=== PATIENT | female | born 1980 | race Two or more races ===

== ENCOUNTER 2017-09-26 10:10 | Outpatient (CLI) | payer OTHER ==
[~2017-09-26 10:10] MED LIST: CIPRO500 MG PO; PERCOCET 5/3251 TAB PO; PROTONIX40 MG PO; ZOFRAN ODT4 MG/UDTAB PO
== END 2017-09-26 10:59 | disposition home or self-care (01) ==
LOC: NST 10:10
DX: Z34.83 Encounter for supervision of other normal pregnancy, third trimester (principal)

== ENCOUNTER 2017-09-26 15:58 | Inpatient (IN) | payer OTHER ==
[~2017-09-26] VITALS: Ht 170.2 cm; Wt 110.7 kg
[2017-10-06] MEDS ORDERED: ZITHROMAX200 MG PO (11:53)
[2017-10-06] MEDS ORDERED: TUSSI-PRES B LIQ5 ML PO (11:54)
[2017-10-06] MEDS ORDERED: ORAPRED ODT10 MG PO (11:56)
[2017-10-06] MEDS ORDERED: PRENATAL TABLE1 EAC1 PO (11:56)
== END 2017-10-08 14:38 | disposition home or self-care (01) | DRG 767 ==
LOC: OB/GYN 09-29 08:37 → O/R 10-06 10:36 → LDR 10-06 10:36 → O/R 10-06 17:43 → OB/GYN 10-06 19:31
PROVIDERS: Obstetrics & Gynecology
PROC: 0UL70ZZ Occlusion of Bilateral Fallopian Tubes, Open Approach (ICD-10-PCS; 2017-10-06)
PROC: 0WQF0ZZ Repair Abdominal Wall, Open Approach (ICD-10-PCS; 2017-10-06)
PROC: 0UQGXZZ Repair Vagina, External Approach (ICD-10-PCS; 2017-10-06)
PROC: 10907ZC Drainage of Amniotic Fluid, Therapeutic from Products of Conception, Via Natural or Artificial Opening (ICD-10-PCS; 2017-10-06)
PROC: 3E033VJ Introduction of Other Hormone into Peripheral Vein, Percutaneous Approach (ICD-10-PCS; 2017-10-06)
PROC: 4A1HXCZ Monitoring of Products of Conception, Cardiac Rate, External Approach (ICD-10-PCS; 2017-10-06)
PROC: 10E0XZZ Delivery of Products of Conception, External Approach (ICD-10-PCS; principal; 2017-10-06 20:00)
DX: O71.4 Obstetric high vaginal laceration alone (principal); Z37.0 Single live birth; Z3A.39 39 weeks gestation of pregnancy; Z30.2 Encounter for sterilization; K42.9 Umbilical hernia without obstruction or gangrene

== ENCOUNTER 2017-10-02 12:02 | Outpatient (CLI) | payer OTHER | END 2017-10-02 13:00 | disposition home or self-care (01) | LOC: NST 12:02 | DX: Z34.83 Encounter for supervision of other normal pregnancy, third trimester (principal) ==

== ENCOUNTER → 2018-03-11 11:40 | Outpatient (CLI) | payer OTHER ==
[~2018-03-11 11:40] MED LIST changes: +ORAPRED ODT10 MG PO; +PRENATAL TABLE1 EAC1 PO; +TUSSI-PRES B LIQ5 ML PO; +ZITHROMAX200 MG PO
== END | disposition home or self-care (01) ==
LOC: LAB 11:40
DX: R50.9 Fever, unspecified (principal)

== ENCOUNTER 2018-07-03 13:40 | Outpatient (CLI) | payer OTHER | END 2018-07-03 15:17 | disposition home or self-care (01) | LOC: LAB 13:40 | DX: E88.89 Other specified metabolic disorders (principal) ==

== ENCOUNTER 2019-01-20 10:17 | Outpatient (CLI) | payer OTHER | END 2019-01-20 10:24 | disposition home or self-care (01) | LOC: RAD 10:17 | DX: R05 Cough (principal) ==

== ENCOUNTER 2020-03-06 10:23 | Outpatient (CLI) | payer OTHER | END 2020-03-06 13:41 | disposition home or self-care (01) | LOC: TOM 10:23 | PROVIDERS: ATTEND Internal Medicine Pulmonary Disease | DX: K76.0 Fatty (change of) liver, not elsewhere classified (principal); K46.0 Unspecified abdominal hernia with obstruction, without gangrene ==

== ENCOUNTER 2020-10-01 08:27 | Emergency (ER) | payer OTHER ==
[~2020-10-01] VITALS: Ht 170.2 cm; Wt 90.7 kg
[2020-10-01] MEDS ORDERED: ORPHENADRINE C100 MG PO (10:05)
[2020-10-01] MEDS ORDERED: KETO10TA2 PO (10:05)
[2020-10-01] MEDS ORDERED: CYCLOBENZAPRINE10 MG PO (10:05)
== END 2020-10-01 10:20 | disposition home or self-care (01) ==
LOC: ER 08:27
DX: M62.830 Muscle spasm of back (principal)

== ENCOUNTER 2020-12-21 01:00 | Outpatient (CLI) | payer OTHER ==
[~2020-12-21 01:00] MED LIST changes: +CYCLOBENZAPRINE10 MG PO; +KETO10TA2 PO; +ORPHENADRINE C100 MG PO
== END 2020-12-21 02:20 | disposition home or self-care (01) ==
LOC: ASH CLINIC 01:00
PROVIDERS: ATTEND Internal Medicine Pulmonary Disease
DX: Z23 Encounter for immunization (principal); U07.1 COVID-19

== ENCOUNTER 2021-05-18 14:12 | Outpatient (CLI) | payer OTHER | END 2021-05-18 14:29 | disposition home or self-care (01) | LOC: SONOGRAMA 14:12 | PROVIDERS: ATTEND Otolaryngology | DX: R22.1 Localized swelling, mass and lump, neck (principal) ==

== ENCOUNTER 2022-05-16 11:45 | Outpatient (CLI) | payer OTHER | END 2022-05-16 12:02 | disposition home or self-care (01) | LOC: TOM 11:45 | PROVIDERS: ATTEND General Practice | DX: R10.9 Unspecified abdominal pain (principal); K42.9 Umbilical hernia without obstruction or gangrene; R16.0 Hepatomegaly, not elsewhere classified; K76.0 Fatty (change of) liver, not elsewhere classified ==

== ENCOUNTER 2022-05-20 08:08 | Outpatient (CLI) | payer OTHER | END 2022-05-20 08:20 | disposition home or self-care (01) | LOC: TOM 08:08 | PROVIDERS: ATTEND Internal Medicine Pulmonary Disease | DX: N60.11 Diffuse cystic mastopathy of right breast (principal); K63.89 Other specified diseases of intestine; C18.9 Malignant neoplasm of colon, unspecified; C77.5 Secondary and unspecified malignant neoplasm of intrapelvic lymph nodes; R91.8 Other nonspecific abnormal finding of lung field ==

== ENCOUNTER 2022-06-03 07:38 | Outpatient (CLI) | payer OTHER | END 2022-06-03 07:43 | disposition home or self-care (01) | LOC: NUCLEAR 07:38 | PROVIDERS: ATTEND Internal Medicine Pulmonary Disease | DX: C18.9 Malignant neoplasm of colon, unspecified (principal) | CPT/HCPCS: 78815; A9552 ==

== ENCOUNTER 2023-05-05 07:09 | Outpatient (CLI) | payer OTHER | END 2023-05-05 07:25 | disposition home or self-care (01) | LOC: MRI 07:09 | PROVIDERS: ATTEND Internal Medicine Hematology & Oncology | DX: C18.2 Malignant neoplasm of ascending colon (principal); D39.11 Neoplasm of uncertain behavior of right ovary | CPT/HCPCS: 72196; 74182 ==

== ENCOUNTER 2023-05-16 07:58 | Outpatient (CLI) | payer OTHER | END 2023-05-16 07:59 | disposition home or self-care (01) | LOC: NUCLEAR 07:58 | PROVIDERS: ATTEND Internal Medicine Hematology & Oncology | DX: C18.2 Malignant neoplasm of ascending colon (principal) ==

== ENCOUNTER 2023-06-12 10:05 | Outpatient (CLI) | payer OTHER | END 2023-06-12 10:18 | disposition home or self-care (01) | LOC: SONOGRAMA 10:05 | PROVIDERS: ATTEND Internal Medicine | DX: E04.2 Nontoxic multinodular goiter (principal); Z88.1 Allergy status to other antibiotic agents ==

== ENCOUNTER 2023-06-12 11:15 | Emergency (ER) | payer OTHER ==
[~2023-06-12] VITALS: Ht 170.2 cm; Wt 95.3 kg
== END 2023-06-12 15:15 | disposition home or self-care (01) ==
LOC: ER 11:16
DX: L08.82 Omphalitis not of newborn (principal); Z88.8 Allergy status to other drugs, medicaments and biological substances

== ENCOUNTER 2024-05-31 07:46 | Outpatient (CLI) | payer OTHER ==
[~2024-05-31 07:46] MED LIST changes: +CLONAZEPAM0.5 MG; +LEVSIN/SL0.125 MG SL; +SERTRALINE HCL50 MG; +TRAM1TAB98 PO; +TRAMADOL HCL50 MG PO
== END 2024-05-31 07:48 | disposition home or self-care (01) ==
LOC: NUCLEAR 07:46
PROVIDERS: ATTEND Internal Medicine Hematology & Oncology
DX: C18.2 Malignant neoplasm of ascending colon (principal)